=== PATIENT | female | born 1990 | race Caucasian/White ===

== ENCOUNTER 2016-09-19 19:56 | Emergency (ER) | payer BC, MEDICAID ==
[~2016-09-19 19:56] MED LIST: ADVAIR 2501 DISK W/D; ADVIL200 MG; ALBUTEROL I0.5 ML/EA AERO NEB; ALBUTEROL SULF8.5 GM IH; ALBUTEROL17 GM IH; AMOXICILLIN500 MG; ASPIRIN81 M1 PO; CIPRO HC OTIC S10 ML OT; HYDROCODON-ACE1 EAC7 PO; KEFLEX500 MG PO; LORTAB 5/500 TA1 TAB PO; METHOTREXA25 MG/1 M6 IJ; MOTRIN800 MG PO; NORCO 5-325 TA1 EACH PO; OMEPRAZOLE40 MG PO; OXYCODONE/APAP PO; PRENATAL VITAM1 EA11 PO; PRENATAL1 EACH PO; PROGESTERONE; PROVENTIL HFA6.7 GM INH; ZOFRAN ODT4 MG/UDTAB PO; [UNRECOGNIZED DRUG - OTHER]; no home meds
[2016-09-19] MEDS ORDERED: ASPIRIN81 M1 PO (20:31)
[2016-09-19] MEDS ORDERED: PROZAC20 M3 PO (20:32)
[2016-09-19] MEDS ORDERED: PROAIR HFA8.5 GM INH (20:34)
[2016-09-19 20:39] LABS: BASO % 0.4 % (0-2); EOSINOPHIL ABSOLUTE COUNT 0.3 tho/cmm (0.0-0.7); HCT-HEMATOCRIT 36.9 % (34.0-49.0); IMMATURE GRANULOCYTES ABSOLUTE 0.01 tho/cmm (0-0.03); IMMATURE GRANULOCYTES PERCENT 0.1 % (0-0.3); LYMPH % 25.4 % (20-45); LYMPH ABSOLUTE COUNT 2.1 tho/cmm (0.8-4.5); MCH (MEAN CORPUSCULAR HGB) 30.7 pg (28.0-32.0); MCHC MEAN CORPUSCULAR HGB CONC 35.2 % (32.0-36.0); MEAN PLATELET VOLUME 10.7 cmc (9.4-12.4); MONO % 7.4 % (0-12); MONOCYTE ABSOLUTE COUNT 0.6 tho/cmm (0.0-1.2); NEUTROPHIL ABSOLUTE COUNT 5.3 tho/cmm (1.6-8.0); NEUTROPHIL-AUTOMATED 5.3 tho/cmm (1.6-8.0); NEUTROPHILS % 63.7 % (40-80); PLATELET COUNT 260 tho/cmm (150-450); RED BLOOD COUNT 4.24 mil/cmm (4.00-5.20); WHITE BLOOD COUNT 8.2 tho/cmm (4.0-10.0)
[2016-09-19 20:55] LABS: URINE BILIRUBIN NEGATIVE (NEG); URINE BLOOD NEGATIVE (NEG); URINE GLUCOSE (UA) NEGATIVE (NEG); URINE KETONE NEGATIVE (NEG); URINE LEUKOCYTE ESTERASE POSITIVE (NEG); URINE NITRITE NEGATIVE (NEG); URINE PROTEIN NEGATIVE (NEG)
[2016-09-19 20:57] LABS: URINE APPEARANCE HAZY; URINE COLOR YELLOW
[2016-09-19 21:07] LABS: URINE AMORPHOUS 1+; URINE RBC RARE /[HPF] (0-5); URINE WBC RARE /[HPF] (0-5)
== END 2016-09-20 00:01 ==
LOC: EDMED 19:56
PROVIDERS: Nurse Practitioner Family
DX: O26.891 Other specified pregnancy related conditions, first trimester (principal); N88.8 Other specified noninflammatory disorders of cervix uteri; O99.511 Diseases of the respiratory system complicating pregnancy, first trimester; J45.909 Unspecified asthma, uncomplicated; Z3A.00 Weeks of gestation of pregnancy not specified; Z87.59 Personal history of other complications of pregnancy, childbirth and the puerperium; Z98.890 Other specified postprocedural states